=== PATIENT | male | born 1960 | race Caucasian/White ===

== ENCOUNTER 2020-08-31 19:58 | Emergency (ER) | payer OTHER ==
[~2020-08-31] VITALS: Ht 170.2 cm; Wt 85.7 kg
--- NOTE | 2020-08-31 20:12 | NUR ---
PT CAME TO THE ER C/O SOB X 2 DAYS WORSE TODAY. PT TOOK [employer] WITHOUT RELIEF. PT AAOX4, SATTING 96% ON ROOM AIR W/ NAD NOTED. 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 WILL CONTINUE TO MONITOR PT
[2020-08-31] MEDS ORDERED: IPRATROPIUM NEB FS 0.5 MG/2.5 ML AMPUL.NEB ONE ×2 (20:23→20:34)
[2020-08-31] MEDS ORDERED: ALBUTEROL FS 2.5 MG/3 ML VIAL.NEB ONE ×2 (20:23→20:34)
[2020-08-31] MEDS ORDERED: methylPREDNISolone SOD SUCC 125 MG/2ML VIAL ONE (20:24)
[2020-08-31] MEDS ORDERED: ALBUTEROL FS 2.5 MG/3 ML VIAL.NEB CONTNEB ONE (20:30)
[2020-08-31] MEDS ORDERED: IPRATROPIUM NEB FS 0.5 MG/2.5 ML AMPUL.NEB NEB ONE (20:30)
[2020-08-31] MEDS ORDERED: methylPREDNISolone SOD SUCC 125 MG/2ML VIAL IV ONE (20:30)
--- NOTE | 2020-08-31 20:32 | NUR ---
BREATHING TREATMENT IN PROGRESS.
[2020-08-31 20:36] LABS: BASOPHILS # (AUTO) 0.1 /CMM (0.0-0.2); BASOPHILS % (AUTO) 1.1 % (0.0-2.0); EOSINOPHILS % (AUTO) 10.1 % (0.0-6.0); HEMATOCRIT 43 % (39-51); HEMOGLOBIN 14.7 g/dL (13.5-17.5); LYMPHOCYTES # (AUTO) 1.4 /CMM (0.8-4.8); LYMPHOCYTES % (AUTO) 26.9 % (20.0-44.0); MEAN CORPUSCULAR HGB CONC 35 g/dl (31.0-36.0); MEAN CORPUSCULAR VOLUME 88 fL (80-96); MONOCYTES # (AUTO) 0.5 /CMM (0.1-1.30); MONOCYTES % (AUTO) 9.1 % (2.0-12.0); NEUTROPHILS # (AUTO) 2.8 /CMM (1.8-8.9); NEUTROPHILS % (AUTO) 52.8 % (43.0-81.0); PLATELET COUNT (AUTO) 222 /CMM (150-450); RED BLOOD CELL COUNT(AUTO) 4.82 MIL/uL (4.5-6.0); WHITE BLOOD COUNT (AUTO) 5.4 K/uL (4.3-11.0)
[2020-08-31 21:06] LABS: CREATININE 1.4 mg/dL (0.6-1.3); POTASSIUM 3.7 mmol/L (3.5-5.1)
[2020-08-31 21:09] LABS: B-TYPE NATRIURETIC PEPTIDE 12 PG/ML (0-125)
--- NOTE | 2020-08-31 21:15 | NUR ---
PT REASSESSED. PT STATES " I FEEL BETTER SO FAR." BREATHING TX IN PROGRESS.
[2020-08-31] MEDS ORDERED: AZIT250T PO (21:27)
[2020-08-31] MEDS ORDERED: METH4TAB17 PO (21:27)
[2020-08-31] MEDS ORDERED: ALBU18HF2 INH (21:29)
[2020-08-31] MEDS ORDERED: BECL10.6 IH (21:29)
[2020-08-31 21:39] VITALS: BP 142/89
--- NOTE | 2020-08-31 21:40 | NUR ---
Patient discharged to home in stable condition. Written and verbal after care instructions given. Patient verbalizes understanding of instruction. Pt ambulatory w/ steady gait
== END 2020-08-31 21:56 | disposition home or self-care (01) ==
LOC: ER 19:59
DX: J44.1 Chronic obstructive pulmonary disease with (acute) exacerbation (principal); R06.82 Tachypnea, not elsewhere classified; F20.9 Schizophrenia, unspecified; N40.0 Benign prostatic hyperplasia without lower urinary tract symptoms; Z60.2 Problems related to living alone
CPT/HCPCS: 36415; 71045; 80048; 83880; 84484; 85025; 87040 ×2; 93005; 94644; 96374; 99285; J2930

== ENCOUNTER 2020-11-23 20:43 | Emergency (ER) | payer OTHER ==
[~2020-11-23] VITALS: Ht 170.2 cm; Wt 84.4 kg
[~2020-11-23 20:43] MED LIST: ALBU18HF2 INH; AZIT250T PO; BECL10.6 IH; METH4TAB17 PO
[2020-11-23 20:50] VITALS: BP 185/103
[2020-11-23] MEDS ORDERED: CEPH500C2 PO (21:32)
[2020-11-23] MEDS ORDERED: SULF1TAB48 PO (21:32)
== END 2020-11-23 21:46 | disposition home or self-care (01) ==
LOC: ER 20:46
DX: L02.214 Cutaneous abscess of groin (principal); L73.9 Follicular disorder, unspecified; I10 Essential (primary) hypertension; F20.9 Schizophrenia, unspecified; Z60.2 Problems related to living alone; Z79.899 Other long term (current) drug therapy

== ENCOUNTER 2022-02-14 13:09 | Emergency (ER) | payer OTHER ==
[~2022-02-14] VITALS: Ht 170.2 cm; Wt 81.6 kg
[~2022-02-14 13:09] MED LIST changes: +CEPH500C2 PO; +SULF1TAB48 PO
--- NOTE | 2022-02-14 13:48 | NUR ---
right leg pain, poss. cellulitis - noted x 1 week.
[2022-02-14] MEDS ORDERED: SULF1TAB48 PO (15:53)
[2022-02-14] MEDS ORDERED: IBUP-1955 PO (15:53)
[2022-02-14] MEDS ORDERED: CEPH500T PO (15:53)
--- NOTE | 2022-02-14 15:58 | NUR ---
Patient discharged to home in stable condition. Written and verbal after care instructions given. Patient verbalizes understanding of instruction.
[2022-02-14 15:59] VITALS: BP 151/89
== END 2022-02-14 15:59 | disposition home or self-care (01) ==
LOC: ER 13:13
DX: L03.115 Cellulitis of right lower limb (principal); I10 Essential (primary) hypertension; F20.9 Schizophrenia, unspecified; Z60.2 Problems related to living alone; Z79.899 Other long term (current) drug therapy

== ENCOUNTER 2024-06-20 14:04 | Emergency (ER) | payer OTHER ==
[~2024-06-20] VITALS: Ht 170.2 cm; Wt 80.7 kg
[~2024-06-20 14:04] MED LIST changes: +CEPH500T PO; +IBUP-1955 PO
[2024-06-20 14:37] VITALS: BP 153/81; TEMP 98
[2024-06-20 15:33] LABS: BASOPHILS % (AUTO) 0.7 % (0.0-2.0); EOSINOPHILS # (AUTO) 0.3 K/uL (0.0-0.7); HEMATOCRIT 41 % (39-51); HEMOGLOBIN 13.9 g/dL (13.5-17.5); LYMPHOCYTES # (AUTO) 1.1 K/uL (0.8-4.8); LYMPHOCYTES % (AUTO) 17.9 % (20.0-44.0); MEAN CORPUSCULAR HEMOGLOBIN 30 PG (26.0-33.0); MEAN CORPUSCULAR HGB CONC 34 g/dl (31.0-36.0); MEAN CORPUSCULAR VOLUME 87 fL (80-96); MONOCYTES # (AUTO) 0.5 K/uL (0.1-1.30); MONOCYTES % (AUTO) 7.8 % (2.0-12.0); NEUTROPHILS # (AUTO) 4.1 K/uL (1.8-8.9); NEUTROPHILS % (AUTO) 68.6 % (43.0-81.0); PLATELET COUNT (AUTO) 282 K/uL (150-450); RED BLOOD CELL COUNT(AUTO) 4.71 MIL/uL (4.5-6.0)
[2024-06-20 15:47] LABS: CALCIUM, SERUM 8.6 mg/dL (8.5-10.1); CREATININE 1.3 mg/dL (0.6-1.3); POTASSIUM 3.9 mmol/L (3.5-5.1)
[2024-06-20 15:53] LABS: ALBUMIN 3.7 g/dL (3.4-5.0); BILIRUBIN,DIRECT 0.1 mg/dL (0.0-0.2); BILIRUBIN,TOTAL 0.5 mg/dL (0.2-1.0); TOTAL PROTEIN, SERUM 7.2 g/dL (6.4-8.2)
[2024-06-20] MEDS ORDERED: dexAMETHasone 1 MG TABLET ONE (16:29)
[2024-06-20] MEDS ORDERED: KETOROLAC TROMETHAMINE INJ 30 MG/ML VIAL ONE (16:29)
[2024-06-20] MEDS ORDERED: dexAMETHasone 4 MG TABLET ONE (16:29)
[2024-06-20] MEDS: dexAMETHasone 1 MG TABLET PO ONE (16:30)
[2024-06-20] MEDS ORDERED: GABAPENTIN 100 MG CAPSULE ONE (16:30)
[2024-06-20] MEDS: GABAPENTIN 100 MG CAPSULE PO ONE (16:30)
[2024-06-20] MEDS: KETOROLAC TROMETHAMINE INJ 30 MG/ML VIAL IM ONE (16:30)
[2024-06-20] MEDS ORDERED: GABA-532 PO (17:11)
[2024-06-20 17:14] VITALS: O2SAT 98
== END 2024-06-20 17:15 | disposition home or self-care (01) ==
LOC: ER 14:04
DX: M79.622 Pain in left upper arm (principal); M25.512 Pain in left shoulder; R07.9 Chest pain, unspecified; R20.2 Paresthesia of skin; F20.9 Schizophrenia, unspecified; I10 Essential (primary) hypertension; Z79.51 Long term (current) use of inhaled steroids; Z60.2 Problems related to living alone
CPT/HCPCS: 99284; 71045; 96372; 73030; 85025; 80048; 80076; 36415; 84443; J8540 ×2; J1885

== ENCOUNTER 2025-02-21 18:31 | Emergency (ER) | payer MEDICARE, OTHER ==
[~2025-02-21] VITALS: Ht 165.1 cm; Wt 77.1 kg
[~2025-02-21 18:31] MED LIST changes: +GABA-532 PO
[2025-02-21 18:51] VITALS: BP 100/64; TEMP 98
[2025-02-21] MEDS ORDERED: AMOX-430 PO (19:16)
[2025-02-21] MEDS ORDERED: TOBR5DRO2 RIGHTEYE (19:16)
[2025-02-21] MEDS ORDERED: AMOX/CLAVULANATE 875 MG TABLET ONE (19:16)
[2025-02-21] MEDS: AMOX/CLAVULANATE 875 MG TABLET PO ONE (19:18)
[2025-02-21 19:40] VITALS: O2SAT 98
== END 2025-02-21 19:43 | disposition home or self-care (01) ==
LOC: ER 18:31
DX: H11.31 Conjunctival hemorrhage, right eye (principal); H10.9 Unspecified conjunctivitis; F20.9 Schizophrenia, unspecified; I10 Essential (primary) hypertension; R42 Dizziness and giddiness; Z79.51 Long term (current) use of inhaled steroids; Z60.2 Problems related to living alone